=== PATIENT | male | born 2000 | race Two or more races ===

== ENCOUNTER 2021-12-19 18:41 | Emergency (ER) | payer OTHER ==
[2021-12-19] MEDS ORDERED: predniSONE 10 MG Tab PO ONE (23:37)
[2021-12-19] MEDS ORDERED: diphenhydrAMINE 50 MG Cap PO ONE (23:37)
== END 2021-12-20 00:01 | disposition home or self-care (01) ==
LOC: MW.ED 18:41
DX: R21 Rash and other nonspecific skin eruption (principal)
CPT/HCPCS: 99282; A9270-GY

== ENCOUNTER 2025-03-27 05:48 | Day surgery (SDC) | payer OTHER ==
[2025-03-27 06:07] LABS: APPEARANCE,URINE CLEAR; BILIRUBIN,URINE NEGATIVE (NEGATIVE); COLOR,URINE YELLOW; GLUCOSE,URINE NEGATIVE (NEGATIVE); KETONES,URINE NEGATIVE (NEGATIVE); LEUKOCYTE ESTERASE,URINE NEGATIVE (NEGATIVE); NITRITE,URINE NEGATIVE (NEGATIVE); OCCULT BLOOD,URINE NEGATIVE (NEGATIVE); PROTEIN,URINE NEGATIVE (NEGATIVE); UROBILINOGEN,URINE 0.2 EU/dL (<2.0)
[2025-03-27] MEDS ORDERED: Sodium Chloride 0.9% 2.5 ML Syringe FLUSH PRN (06:47)
[2025-03-27] MEDS ORDERED: Sodium Chloride 0.9% 20 ML SDV IV PRN (06:47)
[2025-03-27] MEDS ORDERED: Sodium Chloride 0.9% 10 ML Syringe FLUSH PRN (06:47)
[2025-03-27 07:04] LABS: BASOPHILS ABSOLUTE AUTO 0.05 K/uL (0.00-0.20); BASOPHILS PERCENT AUTO 0.3 % (0.0-1.0); EOSINOPHILS ABSOLUTE AUTO 0.05 K/uL (0.00-0.45); EOSINOPHILS PERCENT AUTO 0.3 % (0.0-6.0); HEMATOCRIT 47.7 % (42.0-52.0); HEMOGLOBIN 16.2 g/dL (14.0-18.0); IMMATURE GRAN PERCENT AUTO 2.1 % (0.0-0.4); LYMPHOCYTES PERCENT AUTO 4.8 % (24.0-44.0); MEAN CORPUSCULAR HEMOGLOBIN 29.1 pg (28.0-32.0); MEAN CORPUSCULAR VOLUME 85.8 fL (83.0-99.0); MEAN PLATELET VOLUME 9.1 fL (9.4-12.4); MONOCYTES ABSOLUTE AUTO 1.06 K/uL (0.00-0.80); MONOCYTES PERCENT AUTO 7.3 % (0.0-8.0); NEUTROPHILS ABSOLUTE AUTO 12.46 K/uL (1.80-7.70); NEUTROPHILS PERCENT AUTO 85.2 % (41.0-71.0); PLATELET COUNT,PLT 280 K/uL (150-400); RED BLOOD CELL COUNT 5.56 M/uL (4.52-5.90); WHITE BLOOD CELL COUNT,WBC 14.62 K/uL (3.9-11.3)
[2025-03-27] MEDS: Iopamidol 755 MG/ML 500 ML Multipack Bottle IVPUSH ONE (07:08)
[2025-03-27 07:30] LABS: LACTIC ACID 1.2 mmol/L (0.4-2.0)
[2025-03-27] MEDS: Alum Hydrox/Mag Hydrox/Simeth 15 ML, Lidocaine 2% 5 ML PO ONE (07:31)
[2025-03-27] MEDS: Sodium Chloride 0.9% 1,000 ML IV ONE ×2 (07:31→08:14)
[2025-03-27] MEDS: Ondansetron 4 MG Tab.DIS PO ONE (07:31)
[2025-03-27 07:32] LABS: A/G RATIO 1.3 (0.9-1.6); ALANINE AMINOTRANSFERASE,ALT 83 IU/L (14-63); ALKALINE PHOSPHATASE 78 U/L (46-116); ASPARTATE AMNIOTRANSFERASE,AST 22 IU/L (15-37); BILIRUBIN TOTAL 0.8 mg/dL (0.2-1.0); BLOOD UREA NITROGEN,BUN 18 mg/dL (7.0-18.0); CALCIUM 9.1 mg/dL (8.5-10.1); CARBON DIOXIDE,CO2 29.3 mmol/L (21.0-32.0); CHLORIDE,CL 101 mmol/L (98-107); CREATINE KINASE,CK 51 U/L (26-308); CREATININE 1.3 mg/dL (0.8-1.3); EST CRCL DRUG DOSING (CG) 81.21 mL/min; ESTIMATED GFR 78 mL/min (>60); GLUCOSE RANDOM 112 mg/dL (74-106); LIPASE 37 U/L (16-77); MAGNESIUM 1.8 mg/dL (1.8-2.4); POTASSIUM,K 4.1 mmol/L (3.5-5.1); PROTEIN TOTAL,TP 7.1 g/dL (6.4-8.2); SODIUM,NA 140 mmol/L (136-148)
[2025-03-27] MEDS: Aztreonam 1 GM in Water For Injection, Sterile 10 ML IV ONE (08:14)
[2025-03-27] MEDS ORDERED: Propofol 200 MG/20 ML SDV ONE (10:27)
[2025-03-27] MEDS ORDERED: Sodium Chloride 0.9% 20 ML ONE (10:28)
[2025-03-27] MEDS ORDERED: dexmedeTOMIDine HCl 200 MCG/2 ML SDV ONE (10:28)
[2025-03-27] MEDS ORDERED: HYDROmorphone 1 MG/ML Syringe ONE (10:28)
[2025-03-27] MEDS ORDERED: Rocuronium Bromide 50 MG/5 ML Syringe ONE (10:31)
[2025-03-27] MEDS ORDERED: Ropivacaine 0.5% 5 MG/ML 30 ML SDV ONE (10:33)
[2025-03-27] MEDS ORDERED: Bupivacaine 0.5% 30 ML SDV ONE (10:39)
[2025-03-27] MEDS: Ertapenem 1 GM in Sodium Chloride 0.9% 50 ML IV ONE (10:40)
[2025-03-27] MEDS ORDERED: Naloxone 0.4 MG/ML SDV IVPUSH PRN ×2 (11:18→14:38)
[2025-03-27] MEDS ORDERED: Morphine 2 MG/ML SYRINGE IVPUSH PRN (11:18)
[2025-03-27] MEDS ORDERED: HYDROmorphone 1 MG/ML Syringe IVPUSH PRN ×2 (11:18→14:38)
[2025-03-27] MEDS ORDERED: fentaNYL 50 MCG/ML SDV IVPUSH PRN (11:18)
[2025-03-27] MEDS ORDERED: Metoclopramide 10 MG/2 ML SDV IVPUSH PRN (11:18)
[2025-03-27] MEDS ORDERED: Albuterol 0.083% 2.5 MG/3 ML Neb Soln NEB PRN (11:18)
[2025-03-27] MEDS ORDERED: Phenylephrine HCl In 0.9% NaCl 1 MG/10 ML Syringe IVPUSH PRN (11:18)
[2025-03-27] MEDS ORDERED: Ondansetron 4 MG/2 ML SDV IVPUSH PRN ×2 (11:18→14:38)
[2025-03-27] MEDS ORDERED: Magnesium Sulfate (4.06 MEQ/ML) 5 GM/10 ML SDV ONE (12:35)
[2025-03-27] MEDS ORDERED: Ondansetron 4 MG/2 ML SDV ONE ×2 (12:35)
[2025-03-27] MEDS ORDERED: Dexamethasone 4 MG/ML 5 ML MDV ONE ×2 (12:35)
[2025-03-27] MEDS ORDERED: Sugammadex Sodium 200 MG/2 ML VIAL IV ONE (13:28)
[2025-03-27] MEDS ORDERED: Ketorolac 30 MG/ML SDV ONE (13:28)
[2025-03-27] MEDS ORDERED: Acetaminophen/HYDROcodone 325-5 MG Tab PO PRN (14:38)
[2025-03-27] MEDS ORDERED: Acetaminophen 325 MG Tab PO PRN (14:38)
[2025-03-27] MEDS ORDERED: Sodium Chloride 0.9% 1,000 ML IV SCH (14:45)
[2025-03-27] MEDS ORDERED: Famotidine 20 MG Tab PO SCH (21:00)
== END 2025-03-27 17:50 | disposition home or self-care (01) ==
LOC: MW.ED 05:48 → MW.SDS 10:37
PROVIDERS: ATTEND Surgery
DX: K35.30 Acute appendicitis with localized peritonitis, without perforation or gangrene (principal); Z79.899 Other long term (current) drug therapy; Z87.891 Personal history of nicotine dependence
CPT/HCPCS: 00840; 36415; 64488; 71045; 71045-26; 74177; 74177-26; 80053; 81003; 82550; 83605; 83690; 83735; 84484; 85025; 87040; 96374; 96375; 99284; 99285-25; A9270-GY; J0457; J0665; J1100; J1171; J1335; J1885; J2405; J2704; J2795; J3475; J3490; J7030; Q9967